=== PATIENT | female | born 1955 | race Caucasian/White ===

== ENCOUNTER 2023-08-24 07:12 | Observation (INO) | payer MEDICARE, OTHER ==
[2023-08-24] MEDS ORDERED: NITROGLYCERIN OINT 1 INCH/GM PACKET TOPICAL STA (07:40)
--- NOTE | 2023-08-24 07:55 | ED ---
General Adult HPI - General Chief complaint: Chest Pain Stated complaint: chest pain Time Seen by Provider: 08/24/23 07:15 Source: patient, EMS, RN notes reviewed, old records reviewed Mode of arrival: EMS Limitations: no limitations - History of Present Illness Initial comments: This a 68-year-old female who presents emergency Department from [facility] [address]. Patient was there for benzodiazepine abuse. Patient states she's been under 10 days. Patient comes in today because she started having chest pain in the middle the night and continues. Patient states radiates up to the neck area. Patient also states she short of breath with it. Patient states she's had a cardiac catheterization and was told that she had at least 50% lesions. Patient states she is also mildly nauseous. Patient denies any vomiting patient denies abdominal pain patient denies any back pain. Patient denies any recent fever chills or cough. Patient denies any swelling to the legs or calf tenderness. - Related Data Allergies Allergy/AdvReac Type Severity Reaction Status Date / Time ibuprofen [From Motrin] AdvReac Nausea Verified 08/24/23 07:18 Review of Systems ROS Statement: Those systems with pertinent positive or pertinent negative responses have been documented in the HPI. ROS Other: All systems not noted in ROS Statement are negative. Past Medical History Past Medical History: COPD, Hyperlipidemia, Hypertension History of Any Multi-Drug Resistant Organisms: None Reported Past Surgical History: Cholecystectomy, Heart Catheterization Past Psychological History: Anxiety, Depression Smoking Status: Current every day smoker Past Alcohol Use History: Occasional Past Drug Use History: Prescription Drug Abuse General Exam - General Exam Comments Initial Comments: GENERAL: Patient is well-developed and well-nourished. Patient is nontoxic and well- hydrated and is in mild distress. ENT: Neck is soft and supple. No significant lymphadenopathy is noted. Oropharynx is clear. Moist mucous membranes. Neck has full range of motion without eliciting any pain. EYES: The sclera were anicteric and conjunctiva were pink and moist. Extraocular movements were intact and pupils were equal round and reactive to light. Eyelids were unremarkable. PULMONARY: Unlabored respirations. Good breath sounds bilaterally. No audible rales rhonchi or wheezing was noted. CARDIOVASCULAR: There is a regular rate and rhythm without any murmurs gallops or rubs. ABDOMEN: Soft and nontender with normal bowel sounds. SKIN: Skin is clear with no lesions or rashes and otherwise unremarkable. NEUROLOGIC: Patient is alert and oriented x3. Cranial nerves II through XII are grossly intact. Motor and sensory are also intact. Normal speech, volume and content. Symmetrical smile. MUSCULOSKELETAL: Normal extremities with adequate strength and full range of motion. No lower extremity swelling or edema. No calf tenderness. LYMPHATICS: No significant lymphadenopathy is noted PSYCHIATRIC: Normal psychiatric evaluation. Limitations: no limitations Course Vital Signs 08/24/23 08/24/23 08/24/23 07:14 07:36 08:15 Pulse Rate 62 74 Pulse Rate [ 70 Core Sticker ] Respiratory 18 18 18 Rate Blood Pressure 141/88 143/70 O2 Sat by Pulse 98 98 Oximetry 08/24/23 09:18 Pulse Rate 65 Pulse Rate [ Core Sticker ] Respiratory 18 Rate Blood Pressure 121/80 O2 Sat by Pulse 98 Oximetry Medical Decision Making - Medical Decision Making EKG is interpreted by myself. EKG shows a sinus rhythm at 72 bpm WV interval 204 QRS is 75 Q-T intervals 48 QTC is 433. Patient's EKG shows no ST segment elevation or depression. Was pt. sent in by a medical professional or institution (, PA, SALES PROJECT COORDINATOR, urgent care, hospital, or mcfp...) When possible be specific @ -[facility] [address] sent the patient in Did you speak to anyone other than the patient for history (EMS, parent, family, police, friend...)? What history was obtained from this source @ -No Did you review nursing and triage notes (agree or disagree)? Why? @ -I reviewed and agree with nursing and triage notes Were old charts reviewed (outside hosp., previous admission, EMS record, old EKG, old radiological studies, urgent care reports/EKG's, mcfp records)? Report findings @ -I reviewed prior charts from prior laboratory on this patient Differential Diagnosis (chest pain, altered mental status, abdominal pain women, abdominal pain men, vaginal bleeding, weakness, fever, dyspnea, syncope, headache, dizziness, GI bleed, back pain, seizure, CVA, palpatations, mental health, musculoskeletal)? @ -Differential Chest Pain: Stable Angina, Unstable Angina, STEMI, NSTEMI Aortic Dissection, Pneumothorax, Musculoskeletal, Esophageal Spasm GERD, Cholecystitis, Pancreatitis, Zoster, this is not meant to be an all-inclusive list. EKG interpreted by me (3pts min.). @ -As above X-rays interpreted by me (1pt min.). @ -Chest x-ray shows no acute abnormality CT interpreted by me (1pt min.). @ -None done U/S interpreted by me (1pt. min.). @ -None done What testing was considered but not performed or refused? (CT, X-rays, U/S, labs)? Why? @ -I considered CT of her chest however her heart rate was not tachycardic and she had no dyspnea nontoxic and well so I did not order this time What meds were considered but not given or refused? Why? @ -None Did you discuss the management of the patient with other professionals (professionals i.e. , PA, SALES PROJECT COORDINATOR, lab, RT, psych nurse, social media intern, patient experience coordinator, teacher, chief scientific officer, case loader operator)? Give summary @ -[facility]. Was smoking cessation discussed for >3mins.? @ -No Was critical care preformed (if so, how long)? @ -No Were there social determinants of health that impacted care today? How? (Home lessness, low income, unemployed, alcoholism, drug addiction, transportation, low edu. Level, literacy, decrease access to med. care, alf, rehab)? @ -No Was there de-escalation of care discussed even if they declined (Discuss DNR or withdrawal of care, Hospice)? DNR status @ -No What co-morbidities impacted this encounter? (DM, HTN, Smoking, COPD, CAD, Cancer, CVA, ARF, Chemo, Hep., AIDS, mental health diagnosis, sleep apnea, morbid obesity)? @ -Coronary artery disease Was patient admitted / discharged? Hospital course, mention meds given and route, prescriptions, significant lab abnormalities, going to OR and other pertinent info. @ -Patient's chest pain was improved and Nitropaste. Patient received aspirin at her facility. I [facility] with [facility] agreed to admit the patient. All lab work was normal. I will consult cardiology. Undiagnosed new problem with uncertain prognosis? @ -No Drug Therapy requiring intensive monitoring for toxicity (Heparin, Nitro, Insulin, Cardizem)? @ -No Were any procedures done? @ -No Diagnosis/symptom? @ -Chest pain Acute, or Chronic, or Acute on Chronic? @ -Acute Uncomplicated (without systemic symptoms) or Complicated (systemic symptoms)? @ -Complicated Side effects of treatment? @ -No Exacerbation, Progression, or Severe Exacerbation? @ -No Poses a threat to life or bodily function? How? (Chest pain, USA, CO, pneumonia, PE, COPD, DKA, ARF, appy, cholecystitis, CVA, Diverticulitis, Homicidal, Suicidal, threat to staff... and all critical care pts) @ -Yes this could lead to an CO which could lead to end organ dysfunction - Lab Data Result diagrams: 08/24/23 07:43 08/24/23 07:43 Lab Results 08/24/23 08/24/23 08/24/23 Range/Units 07:43 07:43 07:43 WBC 4.1 (3.8-10.6) k/uL RBC 3.63 L (3.80-5.40) m/uL Hgb 13.0 (11.4-16.0) gm/dL Hct 39.4 (34.0-46.0) % MCV 108.7 H (80.0-100.0) fL MCH 35.7 H (25.0-35.0) pg MCHC 32.9 (31.0-37.0) g/dL RDW 13.3 (11.5-15.5) % Plt Count 181 (150-450) k/uL MPV 8.0 Neutrophils % 69 % Lymphocytes % 22 % Monocytes % 6 % Eosinophils % 1 % Basophils % 0 % Neutrophils # 2.8 (1.3-7.7) k/uL Lymphocytes # 0.9 L (1.0-4.8) k/uL Monocytes # 0.3 (0-1.0) k/uL Eosinophils # 0.0 (0-0.7) k/uL Basophils # 0.0 (0-0.2) k/uL Macrocytosis Moderate PT (10.0-12.5) sec INR (<1.2) APTT (22.0-30.0) sec Sodium 135 L (137-145) mmol/L Potassium 4.9 (3.5-5.1) mmol/L Chloride 106 (98-107) mmol/L Carbon Dioxide 22 (22-30) mmol/L Anion Gap 7 mmol/L BUN 11 (7-17) mg/dL Creatinine 0.52 (0.52-1.04) mg/dL Est GFR (CKD-EPI)AfAm >90 (>60 ml/min/1.73 sqM) Est GFR (CKD-EPI)NonAf >90 (>60 ml/min/1.73 sqM) Glucose 98 (74-99) mg/dL Calcium 8.7 (8.4-10.2) mg/dL Magnesium 2.0 (1.6-2.3) mg/dL Total Bilirubin 0.9 (0.2-1.3) mg/dL AST 47 H (14-36) U/L ALT 22 (4-34) U/L Alkaline Phosphatase 67 (38-126) U/L Troponin I 0.019 (0.000-0.034) ng/mL Total Protein 6.5 (6.3-8.2) g/dL Albumin 3.7 (3.5-5.0) g/dL 08/24/23 Range/Units 08:27 WBC (3.8-10.6) k/uL RBC (3.80-5.40) m/uL Hgb (11.4-16.0) gm/dL Hct (34.0-46.0) % MCV (80.0-100.0) fL MCH (25.0-35.0) pg MCHC (31.0-37.0) g/dL RDW (11.5-15.5) % Plt Count (150-450) k/uL MPV Neutrophils % % Lymphocytes % % Monocytes % % Eosinophils % % Basophils % % Neutrophils # (1.3-7.7) k/uL Lymphocytes # (1.0-4.8) k/uL Monocytes # (0-1.0) k/uL Eosinophils # (0-0.7) k/uL Basophils # (0-0.2) k/uL Macrocytosis PT 9.4 L (10.0-12.5) sec INR 0.8 (<1.2) APTT 23.1 (22.0-30.0) sec Sodium (137-145) mmol/L Potassium (3.5-5.1) mmol/L Chloride (98-107) mmol/L Carbon Dioxide (22-30) mmol/L Anion Gap mmol/L BUN (7-17) mg/dL Creatinine (0.52-1.04) mg/dL Est GFR (CKD-EPI)AfAm (>60 ml/min/1.73 sqM) Est GFR (CKD-EPI)NonAf (>60 ml/min/1.73 sqM) Glucose (74-99) mg/dL Calcium (8.4-10.2) mg/dL Magnesium (1.6-2.3) mg/dL Total Bilirubin (0.2-1.3) mg/dL AST (14-36) U/L ALT (4-34) U/L Alkaline Phosphatase (38-126) U/L Troponin I (0.000-0.034) ng/mL Total Protein (6.3-8.2) g/dL Albumin (3.5-5.0) g/dL Disposition Clinical Impression: Chest pain Disposition: ADMITTED IP TO THIS [facility] Referrals: Nonstaff,Physician [Primary Care Provider] - 1-2 days Time of Disposition: 10:52
[2023-08-24 08:03] LABS: Basophils % (A) 0 %; Eosinophils % (A) 1 %; HCT 39.4 % (34.0-46.0); Lymphocytes # (A) 0.9 k/uL (1.0-4.8); Lymphocytes % (A) 22 %; MCH 35.7 pg (25.0-35.0); MCHC 32.9 g/dL (31.0-37.0); MCV 108.7 fL (80.0-100.0); Macrocytosis Moderate; Monocytes # (A) 0.3 k/uL (0-1.0); Monocytes % (A) 6 %; Neutrophils # (A) 2.8 k/uL (1.3-7.7); Neutrophils % (A) 69 %; Platelet Count 181 k/uL (150-450); RBC 3.63 m/uL (3.80-5.40); RDW 13.3 % (11.5-15.5); WBC 4.1 k/uL (3.8-10.6)
[2023-08-24 08:22] LABS: ALT 22 U/L (4-34); African American GFR (CKD) >90 (>60 ml/min/1.73 sqM); Anion Gap 7 mmol/L; Blood Urea Nitrogen 11 mg/dL (7-17); Calcium 8.7 mg/dL (8.4-10.2); Carbon Dioxide 22 mmol/L (22-30); Chloride 106 mmol/L (98-107); Glucose 98 mg/dL (74-99); Non-African American GFR(CKD) >90 (>60 ml/min/1.73 sqM); Sodium 135 mmol/L (137-145); Total Bilirubin 0.9 mg/dL (0.2-1.3)
[2023-08-24 08:32] LABS: AST 47 U/L (14-36); Albumin 3.7 g/dL (3.5-5.0); Alkaline Phosphatase 67 U/L (38-126); Potassium 4.9 mmol/L (3.5-5.1); Total Protein 6.5 g/dL (6.3-8.2)
--- NOTE | 2023-08-24 09:02 | XR ---
EXAMINATION TYPE: XR chest 2V DATE OF EXAM: 08/24/2023 8:40 AM CLINICAL INDICATION:Female, 68 years old with history of Chest Pain; [facility] COMPARISON: None TECHNIQUE: XR chest 2V Frontal and lateral views of the chest. FINDINGS: Lines/Tubes: EKG leads overlie the chest. No indwelling lines are seen. Lungs/Pleura: There is no evidence of pleural effusion, focal consolidation, or pneumothorax. Pulmonary vascularity: Unremarkable. Heart/mediastinum: Cardiomediastinal silhouette is unremarkable. Musculoskeletal: No acute osseous pathology. Other findings: None significant. Possible small calcification over the left upper quadrant. Surgical clips in the right upper quadrant. IMPRESSION: No acute cardiopulmonary disease/process.
[2023-08-24] MEDS ORDERED: ACETAMINOPHEN TAB 325 MG TAB PO STA (09:36)
[2023-08-24 09:40] LABS: INR 0.8 (<1.2); Partial Thromboplastin Time 23.1 sec (22.0-30.0); Prothrombin Time 9.4 sec (10.0-12.5)
[2023-08-24] MEDS ORDERED: NITROGLYCERIN SL TABS 0.4 MG TAB SUBLINGUAL PRN (10:54)
[2023-08-24] MEDS ORDERED: NITROGLYCERIN OINT 1 INCH/GM PACKET TOPICAL SCH (12:00)
[2023-08-24] MEDS ORDERED: MAG HYDROX/AL HYDROX/SIMETH 30 ML CUP PO PRN ×2 (12:23→13:38)
[2023-08-24] MEDS ORDERED: NALOXONE 0.4 MG/ML 1 ML VIAL IV PRN (12:23)
[2023-08-24] MEDS ORDERED: ONDANSETRON 4 MG/2 ML VIAL IVP PRN (12:23)
[2023-08-24] MEDS ORDERED: BENZOCAINE/MENTHOL LOZENG 1 EACH LOZENGE MUCOUS MEM PRN (12:23)
[2023-08-24] MEDS ORDERED: MELATONIN 3 MG TABLET PO PRN (12:23)
--- NOTE | 2023-08-24 12:25 | P.HPIM ---
History of Present Illness H&P Date: 08/24/23 History of present illness; patient is a 68-year-old lady with past medical hist ory significant for benzodiazepine abuse, was currently being treated at [facility] for benzodiazepine detox was sent to the ER for chest pain. Patient stated that she was all right this morning when at 6 AM she woke up complaining of chest pain was central in location, pressure-like in nature, non-radiating. No aggravating or relieving factors associated with this chest pain. Patient w as complaining of shortness of breath and palpitation at that time. She also complaining of nausea but no vomiting. Because of this chest pain, she informed nursing staff and they referred her to the ER Initial lab work done in the ER showed showed WBC 4.1, hemoglobin 13, platelet count 181, sodium 135, potassium 4.9, chloride 106, BUN 11, creatinine 0.52, AST 47, AST 22, troponin 0.019 EKG done in the ER showed heart rate 72, QRS 75, no ST segment elevation or T- wave inversion seen, P waves present Chest x-ray done in the ER showed no acute cardiopulmonary process Patient admitted to medicine service REVIEW OF SYSTEMS: CONSTITUTIONAL: No fever, no malaise, no fatigue. HEENT: No recent visual problems or hearing problems. Denied any sore throat. CARDIOVASCULAR: As mentioned in HPI PULMONARY: No cough, no hemoptysis. GASTROINTESTINAL: No diarrhea, no nausea, no vomiting, no abdominal pain. NEUROLOGICAL: No headaches, no weakness, no numbness. HEMATOLOGICAL: Denies any bleeding or petechiae. GENITOURINARY: Denies any burning micturition, frequency, or urgency. MUSCULOSKELETAL/RHEUMATOLOGICAL: Denies any joint pain, swelling, or any muscle pain. ENDOCRINE: Denies any polyuria or polydipsia. The rest of the 14-point review of systems is negative. PHYSICAL EXAMINATION: GENERAL: The patient is alert and oriented x3, not in any acute distress. Well developed, well nourished. HEENT: Pupils are round and equally reacting to light. EOMI. No scleral icterus. No conjunctival pallor. Normocephalic, atraumatic. No pharyngeal erythema. No thyromegaly. CARDIOVASCULAR: S1 and S2 present. No murmurs, rubs, or gallops. PULMONARY: Chest is clear to auscultation, no wheezing or crackles. ABDOMEN: Soft, nontender, nondistended, normoactive bowel sounds. No palpable organomegaly. MUSCULOSKELETAL: No joint swelling or deformity. EXTREMITIES: No cyanosis, clubbing, or pedal edema. NEUROLOGICAL: Gross neurological examination did not reveal any focal deficits. SKIN: No rashes. Assessment and plan Chest pain History of Benzodiazepine abuse and currently was at [place] Monitor vital signs Monitor CBC Monitor CMP Continue telemetry monitoring Trend troponin Ordered d-dimer Check lipid panel Check TSH Check HbA1c Ordered 2-D echo Consult cardiology Labs and medication were reviewed.. Continue same treatment. Continue with symptomatic treatment. Resume home medication. Monitor labs and vitals. DVT and GI prophylaxis. Further recommendations as per clinical course of the patient Dictation was produced using [employer] dictation software. please excuse any grammatical, word or spelling errors. Past Medical History Past Medical History: COPD, Hyperlipidemia, Hypertension History of Any Multi-Drug Resistant Organisms: None Reported Past Surgical History: Cholecystectomy, Heart Catheterization Past Psychological History: Anxiety, Depression Smoking Status: Current every day smoker Past Alcohol Use History: Occasional Past Drug Use History: Prescription Drug Abuse Medications and Allergies Allergies Allergy/AdvReac Type Severity Reaction Status Date / Time ibuprofen [From Motrin] AdvReac Nausea Verified 08/24/23 07:18 Physical Exam Vitals: Vital Signs Pulse Pulse Resp BP Pulse Ox 08/24/23 11:00 61 18 156/83 98 08/24/23 09:18 65 18 121/80 98 08/24/23 08:15 74 18 143/70 98 08/24/23 07:36 70 18 08/24/23 07:14 62 18 141/88 98 Intake and Output 08/23/23 08/24/23 08/24/23 22:59 06:59 14:59 Other: Weight 50.349 kg Results CBC & Chem 7: 08/24/23 07:43 08/24/23 07:43 Labs: Abnormal Lab Results - Last 24 Hours (Table) 08/24/23 08/24/23 08/24/23 Range/Units 07:43 07:43 08:27 RBC 3.63 L (3.80-5.40) m/uL MCV 108.7 H (80.0-100.0) fL MCH 35.7 H (25.0-35.0) pg Lymphocytes # 0.9 L (1.0-4.8) k/uL PT 9.4 L (10.0-12.5) sec Sodium 135 L (137-145) mmol/L AST 47 H (14-36) U/L
[2023-08-24] MEDS ORDERED: ONDANSETRON 4 MG TAB PO PRN (13:38)
[2023-08-24] MEDS ORDERED: LOPERAMIDE 2 MG CAP PO PRN (13:38)
[2023-08-24] MEDS ORDERED: diphenhydrAMINE 25 MG CAP PO PRN (13:38)
--- NOTE | 2023-08-24 13:46 | P.CRDCN ---
History of Present Illness Consult date: 08/24/23 History of present illness: History of Present Illness: The patient is a 68-year-old female [facility], Ativan. She has been there for 10 days. She is presenting with an episode of substernal chest discomfort occurred at rest. She feels that it is related to her anxiety. The patient has underwent cardiac catheterization recently at [facility] according to her and was told she has 50% plaque. She has no prior history of congestive heart failure. She has symptoms of dizziness and palpitations. She has some dyspnea on exertion and occasional peripheral edema but no PND or orthopnea. She has a history of anxiety. She is a smoker. She has no history of diabetes. In the emergency room she was in sinus mechanism and her cardiac enzymes were unremarkable. She has a history of hypertension and hyperlipidemia. Medications: Lopressor 25 mg twice a day, Lipitor 40 mg daily, aspirin once a day, multivitamin, BuSpar, Zyprexa, Remeron Review of Systems: Respiratory: She has dyspnea on exertion and a history of chronic tobacco use GI: No nausea or vomiting . No history of peptic ulcer disease. No recent GI bleed. : No hematuria or dysuria. Nervous System: No stroke or seizure. Physical Examination: 68-year-old female, alert oriented anxious,Blood pressure 121/80, Heart rate 60 Head: Normocephalic. Eyes: Sclerae nonicteric. Neck: Good carotid upstroke, no bruit, no jugular venous distention. Lungs: Clear to auscultation. Heart: Regular rate and rhythm, S1-S2, no S3, no rub. No murmur. Abdomen: Soft nontender, positive bowel sounds no organomegaly. Extremities: No edema, intact distal pulses. Labs: Hemoglobin 13, potassium 4.9, BUN 11, creatinine 0.52, troponin 0.019 and less than 0.012. Chest x-ray with no infiltrate EKG: Sinus mechanism with sinus arrhythmia and no evidence of acute ST segment changes Impression: 1. Chest discomfort appears to be noncardiac 2. History of mild CAD by cardiac catheterization recently 3. History of chronic tobacco use 4. History of hyperlipidemia Plan: 1. Resume beta norm and statin 2. Obtain an echocardiogram with Doppler 3. Obtain results of recent cardiac catheterization 4. Increase physical activity 5. If stable probable discharge in the next 24-48 hours, negative for this consult we will follow with you. Past Medical History Past Medical History: COPD, Hyperlipidemia, Hypertension History of Any Multi-Drug Resistant Organisms: None Reported Past Surgical History: Cholecystectomy, Heart Catheterization Past Psychological History: Anxiety, Depression Smoking Status: Current every day smoker Past Alcohol Use History: Occasional Past Drug Use History: Prescription Drug Abuse Medications and Allergies Home Medications Medication Instructions Recorded Confirmed Type Acetaminophen Tab [Tylenol] 650 mg PO Q4H PRN 08/24/23 08/24/23 History Aspirin 325 mg PO ONCE 08/24/23 08/24/23 History Atorvastatin [Lipitor] 40 mg PO HS 08/24/23 08/24/23 History Calcium/Magnesium/Zinc/Mady D 1 tab PO TID PRN 08/24/23 08/24/23 History Chlorpheniramine Maleate 4 mg PO Q4H PRN 08/24/23 08/24/23 History [Chlor-Trimeton] Loperamide HCl [Imodium A-D] 4 mg PO BID PRN 08/24/23 08/24/23 History Mag Hydrox/Aluminum Hyd/Simeth 30 ml PO Q4H PRN 08/24/23 08/24/23 History [Mylanta Maximum Strength Liq] Metoprolol Tartrate [Lopressor] 25 mg PO BID 08/24/23 08/24/23 History Mirtazapine [Remeron] 30 mg PO HS 08/24/23 08/24/23 History Multivitamins, Thera [Multivitamin 1 tab PO DAILY 08/24/23 08/24/23 History (formulary)] Nitroglycerin Sl Tabs [Nitrostat] 0.4 mg SUBLINGUAL Q5M PRN 08/24/23 08/24/23 History OLANZapine [ZyPREXA] 5 mg PO HS 08/24/23 08/24/23 History Thiamine [Vitamin B-1] 100 mg PO DAILY 08/24/23 08/24/23 History busPIRone HCl [Buspar] 10 mg PO TID 08/24/23 08/24/23 History ondansetron HCL [Zofran] 8 mg PO Q6H PRN 08/24/23 08/24/23 History Allergies Allergy/AdvReac Type Severity Reaction Status Date / Time ibuprofen [From Motrin] AdvReac Nausea Verified 08/24/23 13:12 Physical Exam Vitals: Vital Signs Pulse Pulse Resp BP Pulse Ox 08/24/23 11:00 61 18 156/83 98 08/24/23 09:18 65 18 121/80 98 08/24/23 08:15 74 18 143/70 98 08/24/23 07:36 70 18 08/24/23 07:14 62 18 141/88 98 Intake and Output 08/23/23 08/24/23 08/24/23 22:59 06:59 14:59 Other: Weight 50.349 kg Results 08/24/23 07:43 08/24/23 07:43 Cardiac Enzymes 08/24/23 08/24/23 08/24/23 Range/Units 07:43 07:43 11:29 AST 47 H (14-36) U/L Troponin I 0.019 <0.012 (0.000-0.034) ng/mL Coagulation 08/24/23 Range/Units 08:27 PT 9.4 L (10.0-12.5) sec APTT 23.1 (22.0-30.0) sec CBC 08/24/23 Range/Units 07:43 WBC 4.1 (3.8-10.6) k/uL RBC 3.63 L (3.80-5.40) m/uL Hgb 13.0 (11.4-16.0) gm/dL Hct 39.4 (34.0-46.0) % Plt Count 181 (150-450) k/uL Comprehensive Metabolic Panel 08/24/23 Range/Units 07:43 Sodium 135 L (137-145) mmol/L Potassium 4.9 (3.5-5.1) mmol/L Chloride 106 (98-107) mmol/L Carbon Dioxide 22 (22-30) mmol/L BUN 11 (7-17) mg/dL Creatinine 0.52 (0.52-1.04) mg/dL Glucose 98 (74-99) mg/dL Calcium 8.7 (8.4-10.2) mg/dL AST 47 H (14-36) U/L ALT 22 (4-34) U/L Alkaline Phosphatase 67 (38-126) U/L Total Protein 6.5 (6.3-8.2) g/dL Albumin 3.7 (3.5-5.0) g/dL Current Medications Generic Name Dose Route Start Last Admin Trade Name Freq PRN Reason Stop Dose Admin Acetaminophen 650 mg 08/24/23 13:38 Acetaminophen Tab 325 Mg Tab PO Q4H PRN Fever and/ or Pain Al Hydroxide/Mg Hydroxide 15 ml 08/24/23 12:23 Mag Hydrox/Al Hydrox/Simeth 30 Ml Cup PO Q6HR PRN Indigestion Aspirin 325 mg 08/25/23 09:00 Aspirin 325 Mg Tab PO DAILY [facility] Atorvastatin Calcium 40 mg 08/24/23 21:00 Atorvastatin 40 Mg Tab PO HS [facility] Benzocaine/Menthol 1 each 08/24/23 12:23 Benzocaine/Menthol Lozeng 1 Each Lozenge MUCOUS MEM Q4HR PRN Sore Throat Buspirone HCl 10 mg 08/24/23 16:00 Buspirone Hcl 10 Mg Tab PO TID [facility] Melatonin 3 mg 08/24/23 12:23 Melatonin 3 Mg Tablet PO HS PRN Insomnia Metoprolol Tartrate 25 mg 08/24/23 21:00 Metoprolol Tartrate 25 Mg Tab PO BID [facility] Mirtazapine 30 mg 08/24/23 21:00 Mirtazapine 15 Mg Tab PO HS [facility] Naloxone HCl 0.2 mg 08/24/23 12:23 Naloxone 0.4 Mg/Ml 1 Ml Vial IV Q2M PRN Opioid Reversal Nitroglycerin 0.4 mg 08/24/23 10:54 Nitroglycerin Sl Tabs 0.4 Mg Tab SUBLINGUAL Q5M PRN Chest Pain Nitroglycerin 1 inch 08/24/23 12:00 08/24/23 11:23 Nitroglycerin Oint 1 Inch/Gm Packet TOPICAL Not Given Q6HR [facility] Non-Formulary Medication 4 mg 08/24/23 13:38 Chlorpheniramine Maleate [Chlor-Trimeton] PO Q4H PRN Allergy Symptoms Non-Formulary Medication 4 mg 08/24/23 13:38 Loperamide Hcl [Imodium A-D] PO BID PRN Diarrhea Non-Formulary Medication 30 ml 08/24/23 13:38 Mag Hydrox/Aluminum Hyd/Simeth [Mylanta Maximum Strength Liq] PO Q4H PRN GI Upset Non-Formulary Medication 8 mg 08/24/23 13:38 Ondansetron Hcl [Zofran] PO Q6H PRN Nausea And Vomiting Olanzapine 5 mg 08/24/23 21:00 Olanzapine 5 Mg Tab PO HS TUTU Ondansetron HCl 4 mg 08/24/23 12:23 Ondansetron 4 Mg/2 Ml Vial IVP Q8HR PRN Nausea And Vomiting Intake and Output 08/23/23 08/24/23 08/24/23 22:59 06:59 14:59 Other: Weight 50.349 kg Patient Weight 08/25/23 05:59 Weight 50.349 kg 08/24/23 07:43 08/24/23 07:43
[2023-08-24] MEDS: busPIRone HCl 10 MG TAB PO SCH ×2 (13:51→20:50)
[2023-08-24] MEDS: ACETAMINOPHEN TAB 325 MG TAB PO PRN ×2 (16:27→20:53)
[2023-08-24] MEDS: METOPROLOL TARTRATE 25 MG TAB PO SCH (20:50)
[2023-08-24] MEDS ORDERED: MIRTAZAPINE 15 MG TAB PO SCH (21:00)
[2023-08-24] MEDS ORDERED: ATORVASTATIN 40 MG TAB PO SCH (21:00)
[2023-08-24] MEDS ORDERED: OLANZapine 5 MG TAB PO SCH (21:00)
--- NOTE | 2023-08-25 00:53 | CA ---
Transthoracic Echo Report Name: Nathaniel Luis Age: 68 Gender: F : 1955 Exam Date: 08/24/2023 16:00 Exam Location: [place] [facility] Ht (in): 66 Wt (lb): 111 Ordering Physician: Monty Horton MD Attending/Referring Phys: [facility] [employer] Blower Cecille Marino RDCS Procedure CPT: Indications: Chest Pain Cardiac Hx: Technical Quality: Fair Contrast 1: Total Dose (mL): Contrast 2: Total Dose (mL): MEASUREMENTS (Male / Female) Normal Values 2D ECHO LV Diastolic Diameter PLAX 4.1 cm 4.2 - 5.9 / 3.9 - 5.3 cm LV Systolic Diameter PLAX 2.9 cm IVS Diastolic Thickness 1.5 cm 0.6 - 1.0 / 0.6 - 0.9 cm LVPW Diastolic Thickness 1.6 cm 0.6 - 1.0 / 0.6 - 0.9 cm LV Relative Wall Thickness 0.7 RV Internal Dim ED PLAX 2.7 cm LA Volume 42.2 cm??? 18 - 58 / 22 - 52 cm??? LA Volume Index 27.8 cm???/m??? 16 - 28 cm???/m??? M-MODE Aortic Root Diameter MM 3.0 cm LA Systolic Diameter MM 4.1 cm LA Ao Ratio MM 1.4 AV Cusp Separation MM 2.0 cm DOPPLER AV Peak Velocity 154.2 cm/s AV Peak Gradient 9.5 mmHg AV Mean Velocity 113.9 cm/s AV Mean Gradient 5.8 mmHg AV Velocity Time Integral 32.1 cm LVOT Peak Velocity 132.1 cm/s LVOT Peak Gradient 7.0 mmHg LVOT Velocity Time Integral 24.7 cm MV Area PHT 3.5 cm??? Mitral E Point Velocity 79.1 cm/s Mitral A Point Velocity 89.8 cm/s Mitral E to A Ratio 0.9 MV Deceleration Time 216.5 ms MV E' Velocity 9.4 cm/s Mitral E to MV E' Ratio 8.4 TR Peak Velocity 271.3 cm/s TR Peak Gradient 29.4 mmHg Right Ventricular Systolic Press 33.8 mmHg FINDINGS Left Ventricle Moderately increased left ventricular wall thickness. Left ventricular cavity size normal. Normal left ventricular systolic function with no obvious regional wall motion abnormalities. Left ventricular ejection fraction is estimated at 55-60 %. Right Ventricle Normal right ventricular size and function. Right ventricular systolic pressure within normal limits. Right Atrium Normal right atrial size. Left Atrium Mild left atrial dilatation. Mitral Valve Structurally normal mitral valve. Mild mitral annular calcification. No mitral stenosis, regurgitation or prolapse. Aortic Valve No aortic valve stenosis or regurgitation. Tricuspid Valve Structurally normal tricuspid valve. Mild tricuspid regurgitation. Pulmonic Valve Structurally normal pulmonic valve. Pericardium Small Loculated pericardial effusion. Aorta Normal size aortic root and proximal ascending aorta. CONCLUSIONS 1. Normal left ventricle size and systolic function with moderate left ventricular hypertrophy 2. Mild tricuspid regurgitation with no evidence of pulmonary hypertension Previewed by: Dr. Betty Rodriguez MD (Electronically Signed) Final Date: 25 August 2023 00:52
[2023-08-25 04:25] VITALS: RESP 16
[2023-08-25] MEDS: METOPROLOL TARTRATE 25 MG TAB PO SCH (08:36)
[2023-08-25] MEDS: busPIRone HCl 10 MG TAB PO SCH ×2 (08:36→15:11)
[2023-08-25] MEDS: ACETAMINOPHEN TAB 325 MG TAB PO PRN (08:39)
[2023-08-25] MEDS ORDERED: ASPIRIN 81 MG PO SCH (09:00)
[2023-08-25] MEDS ORDERED: ASPIRIN 325 MG TAB PO SCH (09:00)
--- NOTE | 2023-08-25 11:01 | P.PN ---
Subjective Progress Note Date: 08/25/23 The patient is a 68-year-old female was transferred from [facility] for benzodiazepine detox, Ativan. She has been there for 10 days. She is presenting with an episode of substernal chest discomfort occurred at rest. She feels that it is related to her anxiety. The patient has underwent cardiac catheterization recently at [facility] according to her and was told she has 50% plaque. She has no prior history of congestive heart failure. She has symptoms of dizziness and palpitations. She has some dyspnea on exertion and occasional peripheral edema but no PND or orthopnea. She has a history of anxiety. She is a smoker. She has no history of diabetes. In the emergency room she was in sinus mechanism and her cardiac enzymes were unremarkable. She has a history of hypertension and hyperlipidemia. Medications: Lopressor 25 mg twice a day, Lipitor 40 mg daily, aspirin once a da y, multivitamin, BuSpar, Zyprexa, Remeron 08/25/2023 Patient was seen and examined resting comfortably in bed eating breakfast. She currently complains of significant anxiety and pressure in the chest at rest. Echocardiogram with Doppler study done yesterday showed a normal LV systolic function with mild TR. Her blood pressure has been elevated. After speaking with the patient she began to feel a bit better, anxiety decreased and her pressure went away. Objective - Vital Signs Vital signs: Vital Signs Temp 98.9 F 08/25/23 03:21 Pulse 62 08/25/23 03:21 Resp 16 08/25/23 03:21 BP 160/90 08/25/23 03:21 Pulse Ox 97 08/25/23 03:21 FiO2 Intake & Output 08/24/23 08/25/23 08/25/23 19:59 06:59 18:59 Intake Total Balance Weight Intake: Oral Other: # Voids - Exam 68-year-old female, alert oriented anxious,Blood pressure 160/90, Heart rate 62 Head: Normocephalic. Eyes: Sclerae nonicteric. Neck: Good carotid upstroke, no bruit, no jugular venous distention. Lungs: Clear to auscultation. Heart: Regular rate and rhythm, S1-S2, no S3, no rub. No murmur. Abdomen: Soft nontender, positive bowel sounds no organomegaly. Extremities: No edema, intact distal pulses. - Labs CBC & Chem 7: 08/24/23 07:43 08/24/23 07:43 Assessment and Plan Assessment: 1. Chest discomfort appears to be noncardiac 2. History of mild CAD by cardiac catheterization recently 3. History of chronic tobacco use 4. History of hyperlipidemia Plan: From cardiology's perspective patient's discomfort appears to be noncardiac. The pressure elevation likely related to anxiety and withdrawal. This can be followed closely as an outpatient. From our standpoint she may be discharged home. FILLER PICKER note has been reviewed, I agree with a documented findings and plan of care. Patient was seen and examined.
[2023-08-25 11:04] VITALS: PULSE 61; TEMP 98
[2023-08-25 11:25] LABS: Chol/HDL Ratio 2.36 Ratio; LDL Cholesterol,Calculated 57.5 mg/dL (0.0-131.0)
[2023-08-25 11:49] VITALS: BP 155/86
--- NOTE | 2023-08-25 12:09 | P.DS ---
Providers Date of admission: 08/24/23 10:56 Expected date of discharge: 08/25/23 Attending physician: Rafat Cantu Consults: 08/24/23 10:54 Consult Physician Urgent Consulting Provider: [facility] Consult Reason/Comments: Chest pain Do you want consulting provider notified?: Yes Primary care physician: Physician Nonstaff Hospital Course: Discharge diagnoses; Chest pain History of Benzodiazepine abuse and currently was at [facility] course; patient is a 68-year-old lady with past medical history significant for benzodiazepine abuse, was currently being treated at [facility] for benzodiazepine detox was sent to the ER for chest pain. Patient stated that she was all right this morning when at 6 AM she woke up complaining of chest pain was central in location, pressure-like in nature, non-radiating. No aggravating or relieving factors associated with this chest pain. Patient was complaining of shortness of breath and palpitation at that time. She also complaining of nausea but no vomiting. Because of this chest pain, she informed nursing staff and they referred her to the ER Initial lab work done in the ER showed showed WBC 4.1, hemoglobin 13, platelet count 181, sodium 135, potassium 4.9, chloride 106, BUN 11, creatinine 0.52, AST 47, AST 22, troponin 0.019 EKG done in the ER showed heart rate 72, QRS 75, no ST segment elevation or T- wave inversion seen, P waves present Chest x-ray done in the ER showed no acute cardiopulmonary process Patient admitted to medicine service 08/25. Patient seen and examined. 2-D echo done, showed no wall motion abnormalities, cardiology cleared the patient for discharge PHYSICAL EXAMINATION: GENERAL: The patient is alert and oriented x3, not in any acute distress. Well developed, well nourished. HEENT: Pupils are round and equally reacting to light. EOMI. No scleral icterus. No conjunctival pallor. Normocephalic, atraumatic. No pharyngeal erythema. No thyromegaly. CARDIOVASCULAR: S1 and S2 present. No murmurs, rubs, or gallops. PULMONARY: Chest is clear to auscultation, no wheezing or crackles. ABDOMEN: Soft, nontender, nondistended, normoactive bowel sounds. No palpable organomegaly. MUSCULOSKELETAL: No joint swelling or deformity. EXTREMITIES: No cyanosis, clubbing, or pedal edema. NEUROLOGICAL: Gross neurological examination did not reveal any focal deficits. SKIN: No rashes. Dictation was produced using [employer] dictation software. please excuse any grammatical, word or spelling errors. Patient Condition at Discharge: Good Plan - Discharge Summary New Discharge Prescriptions: Continue ondansetron HCL [Zofran] 8 mg PO Q6H PRN PRN Reason: Nausea And Vomiting Aspirin 325 mg PO ONCE Thiamine [Vitamin B-1] 100 mg PO DAILY Acetaminophen Tab [Tylenol] 650 mg PO Q4H PRN PRN Reason: Fever And/ Or Pain Multivitamins, Thera [Multivitamin (formulary)] 1 tab PO DAILY Loperamide HCl [Imodium A-D] 4 mg PO BID PRN PRN Reason: Diarrhea Chlorpheniramine Maleate [Chlor-Trimeton] 4 mg PO Q4H PRN PRN Reason: Allergy Symptoms Calcium/Magnesium/Zinc/Mady D 1 tab PO TID PRN PRN Reason: CRAMPING Atorvastatin [Lipitor] 40 mg PO HS Mirtazapine [Remeron] 30 mg PO HS Mag Hydrox/Aluminum Hyd/Simeth [Mylanta Maximum Strength Liq] 30 ml PO Q4H PRN PRN Reason: Gi Upset busPIRone HCl [Buspar] 10 mg PO TID OLANZapine [ZyPREXA] 5 mg PO HS Nitroglycerin Sl Tabs [Nitrostat] 0.4 mg SUBLINGUAL Q5M PRN PRN Reason: Chest Pain Metoprolol Tartrate [Lopressor] 25 mg PO BID Discharge Medication List Acetaminophen Tab [Tylenol] 650 mg PO Q4H PRN 08/24/23 [History] Aspirin 325 mg PO ONCE 08/24/23 [History] Atorvastatin [Lipitor] 40 mg PO HS 08/24/23 [History] Calcium/Magnesium/Zinc/Mady D 1 tab PO TID PRN 08/24/23 [History] Chlorpheniramine Maleate [Chlor-Trimeton] 4 mg PO Q4H PRN 08/24/23 [History] Loperamide HCl [Imodium A-D] 4 mg PO BID PRN 08/24/23 [History] Mag Hydrox/Aluminum Hyd/Simeth [Mylanta Maximum Strength Liq] 30 ml PO Q4H PRN 08/24/23 [History] Metoprolol Tartrate [Lopressor] 25 mg PO BID 08/24/23 [History] Mirtazapine [Remeron] 30 mg PO HS 08/24/23 [History] Multivitamins, Thera [Multivitamin (formulary)] 1 tab PO DAILY 08/24/23 [History] Nitroglycerin Sl Tabs [Nitrostat] 0.4 mg SUBLINGUAL Q5M PRN 08/24/23 [History] OLANZapine [ZyPREXA] 5 mg PO HS 08/24/23 [History] Thiamine [Vitamin B-1] 100 mg PO DAILY 08/24/23 [History] busPIRone HCl [Buspar] 10 mg PO TID 08/24/23 [History] ondansetron HCL [Zofran] 8 mg PO Q6H PRN 08/24/23 [History] Follow up Appointment(s)/Referral(s): Nonstaff,Physician [Primary Care Provider] - 1-2 days
== END 2023-08-25 15:13 | disposition home or self-care (01) ==
LOC: EC 07:12 → 6NMEDSUR 10:56
PROVIDERS: ADMIT Hospitalist; ATTEND Hospitalist
DX: R07.2 Precordial pain (principal); F13.11 Sedative, hypnotic or anxiolytic abuse, in remission; J44.9 Chronic obstructive pulmonary disease, unspecified; E78.5 Hyperlipidemia, unspecified; I10 Essential (primary) hypertension; F41.9 Anxiety disorder, unspecified; I25.10 Atherosclerotic heart disease of native coronary artery without angina pectoris; F32.A Depression, unspecified; F17.200 Nicotine dependence, unspecified, uncomplicated; Z79.899 Other long term (current) drug therapy; Z79.82 Long term (current) use of aspirin; Z88.6 Allergy status to analgesic agent
CPT/HCPCS: 99285; 36415; 93005; 93306; 80061; 80053; 84443; 83735; 84484; 85025; 85610; 85730; 71046; G0378 ×2